=== PATIENT | male | born 1980 | race Caucasian/White ===

== ENCOUNTER → 2022-04-29 | Day surgery (SDC) | payer OTHER ==
[~2022-04-29] MED LIST: HYDROCODON-ACE1 EAC2 PO; NEURONTIN300 MG PO; ZANAFLEX 4 MG TA4 MG PO
== END | disposition home or self-care (01) ==
LOC: OR 06:51
DX: G56.22 Lesion of ulnar nerve, left upper limb (principal); F17.210 Nicotine dependence, cigarettes, uncomplicated; M19.90 Unspecified osteoarthritis, unspecified site; I10 Essential (primary) hypertension
CPT/HCPCS: J0690; J1100; J1170; J1885; J2001; J2250; J2405; J2704; J3010